=== PATIENT | female | born 2000 | race African-American/Black ===

== ENCOUNTER 2022-06-08 16:22 | Emergency (ER) | payer SELFPAY ==
[~2022-06-08] VITALS: Ht 162.6 cm; Wt 64.0 kg
[2022-06-08 16:27] VITALS: BP 120/86
[2022-06-08] MEDS ORDERED: BACITRACIN ZINC OINT UDPKT TOP ONE (16:45)
[2022-06-08] MEDS ORDERED: ACETAMINOPHEN 325MG TABLET PO ONE (16:45)
[2022-06-08] MEDS ORDERED: LIDOCAINE HCL/PF 1% 10 MG/ML 5ML VIAL INFIL ONE (16:45)
[2022-06-08] MEDS ORDERED: HYDR-4001 MT (18:04)
== END 2022-06-08 19:36 | disposition home or self-care (01) ==
LOC: ER 16:22
DX: S92.515A Nondisplaced fracture of proximal phalanx of left lesser toe(s), initial encounter for closed fracture (principal); Y08.89XA Assault by other specified means, initial encounter; Y93.89 Activity, other specified; Y92.89 Other specified places as the place of occurrence of the external cause; Y99.8 Other external cause status
CPT/HCPCS: 70450; 73630; 81025; 99284; J3490; Z7610